=== PATIENT | male | born 2005 | race African-American/Black ===

== ENCOUNTER 2023-09-02 04:57 | Emergency (ER) | payer OTHER ==
[~2023-09-02] VITALS: Ht 185.4 cm; Wt 74.8 kg
[2023-09-02 08:47] VITALS: BP 114/62; TEMP 97.9; O2SAT 100
== END 2023-09-02 08:16 | disposition home or self-care (01) ==
LOC: ER 04:59
DX: R05.9 Cough, unspecified (principal); Z20.822 Contact with and (suspected) exposure to COVID-19
CPT/HCPCS: 99284; 71045; 87426; C9803